=== PATIENT | female | born 1965 | race African-American/Black ===

== ENCOUNTER 2017-11-23 08:05 | Emergency (ER) | payer OTHER ==
[~2017-11-23] VITALS: Ht 165.1 cm; Wt 96.2 kg
[~2017-11-23 08:05] MED LIST: ALPR0.254 PO; AMLO5TAB7 PO; CLOP75TA PO; LISI-130 PO; LISI2.5T PO
[2017-11-23 08:20] VITALS: BP 134/98
[2017-11-23] MEDS ORDERED: predniSONE 20 MG TABLET PO ONE (08:45)
[2017-11-23] MEDS ORDERED: HYDROcodone/APAP 5/325MG 1 TAB TABLET PO ONE (08:45)
--- NOTE | 2017-11-23 08:45 | PHYS DOC ---
Past Medical History Past Medical History: Hypertension Past Surgical History: Other Additional Past Surgical Histo: Ectopic with surgery. Alcohol Use: Rarely Drug Use: None Adult General Chief Complaint Chief Complaint: LOWER EXT PAIN HPI HPI Patient is a 52 year old female with history of hypertension, CVA, arthritis, who presents today complaining of moderate bilateral knee pain that has been going on for weeks. Patient denies any known injury, she states she has been seen by the orthopedic doctor at [facility] and was informed she has arthritis. She states she was put on tramadol despite being on a blood thinner. She states she tried taking the tramadol but it's not touching her pain and she is getting some of the side effects including dry heaving. She states she was also put on diclofenac cream, she states she cannot use the cream because it also thinks her blood especially now that she is on a blood thinner. She is on Plavix. She states she has an appointment with orthopedic doctor next week and would like something for pain to use until then. Patient states her pain is worse on weight bearing. PCP and Orthopedic doctor at [facility] Review of Systems Review of Systems Constitutional: Denies fever or chills [] Musculoskeletal: Reports bilateral knee pain-chronic Integument: Denies rash or skin lesions [] Neurologic: Denies headache, focal weakness or sensory changes [] All other systems were reviewed and found to be within normal limits, except as documented in this note. Current Medications Current Medications Current Medications Medications (Trade) Dose Ordered Sig/Salvatore Start Time Stop Time Status Last Admin Dose Admin Acetaminophen/ Hydrocodone Bitart (Lortab 5/325) 2 tab 1X ONCE 11/23/17 08:45 11/23/17 08:46 Prednisone (Prednisone) 60 mg 1X ONCE 11/23/17 08:45 11/23/17 08:46 Allergies Allergies Allergies Coded Allergies Type Severity Reaction Last Updated Verified aspirin Adverse Reaction Intermediate Nausea 12/18/15 Yes Physical Exam Physical Exam Constitutional: Well developed, well nourished, no acute distress, non-toxic appearance. [] Skin: Warm, dry, no erythema, no rash. [] Back: No tenderness, no CVA tenderness. [] Extremities: Overweight patient. Bilateral knees with no obvious deformity. Slightly Limited range of motion to bilateral knees due to pain. No tenderness on palpation of bilateral knees. Full passive range of motion to bilateral knees. +2 bilateral pedal pulses. Cap refill less than 2 seconds bilateral lower extremities. Neurologic: Alert and oriented X 3, normal motor function, normal sensory function, no focal deficits noted. [] Psychologic: Affect normal, judgement normal, mood normal. [] EKG EKG [] Radiology/Procedures Radiology/Procedures [] Course & Med Decision Making Course & Med Decision Making Pertinent Labs and Imaging studies reviewed. (See chart for details) This is a 52-year-old female patient presented to the ED today with bilateral knee pain due to arthritis. No known injury. Patient is following up with [facility], she is currently on Plavix and cannot tolerate NSAIDs. She has been tried on tramadol and doctor from the cream with no success. Offered her Medrol Dosepak. She felt this will not be sufficient. Informed her i can give her rx of 10 norco with Medrol Dosepak and she has to follow-up with orthopedic doctor next week. Ice elevation encouraged. Dragon Disclaimer Dragon Disclaimer This electronic medical record was generated, in whole or in part, using a voice recognition dictation system. Departure Departure Impression: Primary Impression: Arthritis of knee, degenerative Additional Impression: Bilateral knee pain Disposition: HOME, SELF-CARE Condition: STABLE Referrals: KARO FOSTER MD (PCP) Follow-up with your orthopedic doctor at [facility] as soon as you can Patient Instructions: Arthritis, Degenerative-Brief, Knee Pain, [id number] Additional Instructions: You were seen for chronic knee pain due to arthritis. Take the prescribed medications as ordered. Follow-up with orthopedic doctor [facility] as soon as you can. Try to ice and elevate the extremity. Scripts Methylprednisolone (MEDROL) 4 Mg Tab.ds.pk 1 PKG PO UD, #1 PKG Prov: KAI ARAGON [employer] 11/23/17 Hydrocodone/Apap 5-325 (NORCO 5-325 TABLET) 1 Each Tablet 1 TAB PO Q6HRS, #10 TAB Prov: KAI ARAGON [employer] 11/23/17 Problem Qualifiers Primary Impression: Arthritis of knee, degenerative Osteoarthritis type: unspecified Laterality: bilateral Qualified Codes: M17.0 - Bilateral primary osteoarthritis of knee Additional Impression: Bilateral knee pain Chronicity: chronic Qualified Codes: M25.561 - Pain in right knee; M25.562 - Pain in left knee; G89.29 - Other chronic pain MUTUNGA,KAI DONNELL Nov 23, 2017 08:45
[2017-11-23] MEDS ORDERED: HYDR-971 PO (08:46)
[2017-11-23] MEDS ORDERED: METH4TAB2 PO (08:46)
== END 2017-11-23 09:09 | disposition home or self-care (01) ==
LOC: ER 08:05
DX: M17.0 Bilateral primary osteoarthritis of knee (principal); G89.29 Other chronic pain; I10 Essential (primary) hypertension; Z86.73 Personal history of transient ischemic attack (TIA), and cerebral infarction without residual deficits; Z88.6 Allergy status to analgesic agent; E66.3 Overweight; Z68.35 Body mass index [BMI] 35.0-35.9, adult
CPT/HCPCS: 99284; J7512

== ENCOUNTER → 2018-02-07 | Outpatient (CLI) | payer OTHER ==
[~2018-02-07] MED LIST changes: +HYDR-3164 PO; +METH4TAB2 PO
[2018-02-07 11:14] LABS: BASO % 1 % (0-3); EOS # 0.1 x10^3/uL (0.0-0.7); EOS % 1 % (0-3); HEMATOCRIT 37.4 % (36.0-47.0); HEMOGLOBIN 12.7 g/dL (12.0-15.5); LYMPH # 3.7 x10^3/uL (1.0-4.8); LYMPH % 40 % (24-48); MEAN CORPUSCULAR HEMOGLOBIN 31 pg (25-35); MEAN CORPUSCULAR HGB CONC 34 g/dL (31-37); MEAN CORPUSCULAR VOLUME 91 fL (79-100); MONO # 0.6 x10^3/uL (0.0-1.1); MONO % 7 % (0-9); NEUT # 4.8 x10^3uL (1.8-7.7); NEUT % 52 % (31-73); PLATELET COUNT 289 x10^3/uL (140-400); RED BLOOD COUNT 4.11 x10^6/uL (3.50-5.40); RED CELL DISTRIBUTION WIDTH 13.8 % (11.5-14.5); WHITE BLOOD COUNT 9.3 x10^3/uL (4.0-11.0)
== END | disposition home or self-care (01) ==
LOC: LAB 10:54
PROVIDERS: ATTEND Plastic Surgery
DX: Z01.812 Encounter for preprocedural laboratory examination (principal)
CPT/HCPCS: 36415; 85025